=== PATIENT | male | born 1985 | race Caucasian/White ===

== ENCOUNTER 2023-04-10 01:43 | Emergency (ER) | payer BC ==
[2023-04-10] MEDS ORDERED: LIDOCAINE 1% MPF 30 ML VIAL ONE ×2 (02:34→05:28)
[2023-04-10] MEDS ORDERED: SMZ./TMP. 800/160 MG TABLET ONE (02:34)
[2023-04-10] MEDS ORDERED: TDAP (DIPHTH,PERTUSS(ACELL),TET VAC) 0.5 ML VIAL IMVAC ONE (02:34)
--- NOTE | 2023-04-10 06:12 | ER ---
Nurse's Notes [facility] Name: Juni Mann Age: 37 yrs Sex: Male : 1985 Arrival Date: 04/10/2023 Time: 01:43 Bed 7 Private MD: Diagnosis: Laceration without foreign body, right lower leg;Laceration without foreign body, left lower leg;Complex laceration right lower extremity right diaz, initial encounter, abrasion left knee Presentation: 04/10 02:24 Chief complaint: Patient states: pt tripped over a fire pit and has lacerations to as6 anterior shins. Coronavirus screen: At this time, the client does not indicate any symptoms associated with coronavirus-19. Ebola Screen: No symptoms or risks identified at this time. Initial Sepsis Screen: Does the patient meet any 2 criteria? No. Patient's initial sepsis screen is negative. Does the patient have a suspected source of infection? No. Patient's initial sepsis screen is negative. Risk Assessment: Do you want to hurt yourself or someone else? Patient reports no desire to harm self or others. Onset of symptoms was April 10, 2023. 02:24 Method Of Arrival: Ambulatory as6 02:24 Acuity: EDGARDO 4 as6 Historical: - Allergies: 02:26 No Known Allergies; as6 - Home Meds: 02:26 None [Active]; as6 - PMHx: 02:26 GERD; as6 - PSHx: 02:26 None; as6 - Immunization history:: Last tetanus immunization: > 10 years ago. - Social history:: Smoking status: Patient denies any tobacco usage or history of. - Family history:: not pertinent. Screenin:22 [facility] ED Fall Risk Assessment (Adult) History of falling in the last 3 months, ha1 including since admission No falls in past 3 months (0 pts) Confusion or Disorientation No (0 pts) Intoxicated or Sedated No (0 pts) Impaired Gait No (0 pts) Mobility Assist Device Used No (0 pt) Altered Elimination No (0 pt) Score/Fall Risk Level 0 - 2 = Low Risk Oriented to surroundings, Maintained a safe environment, Educated pt \T\ family on fall prevention, incl call for assistance when getting out of bed, Hourly rounding (assess needs \T\ fall precautionary measures) done. 04:00 Abuse screen: Denies threats or abuse. Denies injuries from another. Nutritional ha1 screening: No deficits noted. Tuberculosis screening: No symptoms or risk factors identified. Assessment: 02:22 General: Appears comfortable, Behavior is calm, cooperative. Pain: Complains of pain in ha1 right leg and left leg Pain does not radiate. Pain currently is 4 out of 10 on a pain scale. Neuro: Level of Consciousness is awake, alert, obeys commands, Oriented to person, place, time, situation. Cardiovascular: Patient's skin is warm and dry. Respiratory: Airway is patent Respiratory effort is even, unlabored, Respiratory pattern is regular, symmetrical. GI: No signs and/or symptoms were reported involving the gastrointestinal system. Derm: Skin is pink, warm \T\ dry. Musculoskeletal: Circulation, motion, and sensation intact. Range of motion: intact in all extremities. Injury Description: Laceration sustained to right diaz and left diaz. 03:20 Reassessment: Patient and/or family updated on plan of care and expected duration. Pain ha1 level reassessed. Patient is alert, oriented x 3, equal unlabored respirations, skin warm/dry/pink. awaiting on procedure. 04:20 Reassessment: Patient and/or family updated on plan of care and expected duration. Pain ha1 level reassessed. Patient is alert, oriented x 3, equal unlabored respirations, skin warm/dry/pink. 05:20 Reassessment: Patient and/or family updated on plan of care and expected duration. Pain ha1 level reassessed. Patient is alert, oriented x 3, equal unlabored respirations, skin warm/dry/pink. 06:20 Reassessment: Patient and/or family updated on plan of care and expected duration. Pain ha1 level reassessed. Patient is alert, oriented x 3, equal unlabored respirations, skin warm/dry/pink. Patient denies pain at this time. Vital Signs: 02:24 BP 136 / 97; Pulse 84; Resp 18 S; Temp 98.2(TE); Pulse Ox 100% on R/A; Weight 99.79 kg as6 (R); Height 6 ft. 1 in. (R); Pain 3/10; 03:20 BP 115 / 68; Pulse 84; Resp 16 S; Pulse Ox 98% on R/A; ha1 04:10 BP 111 / 76; Pulse 80; Resp 16 S; Pulse Ox 99% on R/A; ha1 05:10 BP 119 / 79; Pulse 71; Resp 18 S; Pulse Ox 97% on R/A; ha1 06:00 BP 117 / 80; Pulse 70; Resp 16; Pulse Ox 98% on R/A; ha1 02:24 Body Mass Index 29.03 (99.79 kg, 185.42 cm) as6 02:24 Pain Scale: Adult as6 ED Course: 01:47 Patient arrived in ED. ja2 02:06 Yevgeniy Salomon MD is Attending Physician. sp4 02:19 Arm band placed on. as6 02:22 Patient has correct armband on for positive identification. Placed in gown. Bed in low ha1 position. Call light in reach. Side rails up X 1. Adult w/ patient. 02:26 Triage completed. as6 06:25 Rasheeda Matthew, NIKKY is Primary Nurse. ha1 06:26 Assist provider with laceration repair on left leg and right leg that was between 2.6 ha1 to 7.5 cm using sutures. Set up tray. Performed by Yevgeniy Salomon MD Dressed with 4X4s, Kerlix. Patient did not have IV access during this emergency room visit. Administered Medications: 02:31 Drug: Trimethoprim-Sulfamethoxazole PO (160 mg-800 mg (DS) 1 tablet Route: PO; 02:31 Drug: Tetanus-Diphtheria Toxoid IM Adult 0.5 ml {[employer] Sales Professional: [employer] ([employer]). kl Exp: 09/13/2023. Lot #: [id number]. } Route: IM; Site: right deltoid; 06:29 Follow up: Response: No adverse reaction ha1 05:00 Drug: Lidocaine Infiltration (1 %) 30 ml {Note: administered by Dr. Yevgeniy Santana} Volume: ha1 20 ml; Route: Infiltration; 05:58 Drug: Lidocaine Infiltration (1 %) 30 ml {Note: administered by ER provider..} Volume: jb4 20 ml; Route: Infiltration; 06:29 Follow up: Response: No adverse reaction ha1 Medication: 06:28 VIS not applicable for this client. ha1 Outcome: 06:11 Discharge ordered by . sp4 06:27 Discharged to home ambulatory, with family. ha1 06:27 Condition: stable 06:27 Discharge instructions given to patient, family, Instructed on discharge instructions, follow up and referral plans. Demonstrated understanding of instructions, follow-up care. 06:30 Patient left the ED. ha1 Signatures: Marie Lopez RN Cliff Spann RN RN jb4 Isabel Abdul Ashby, RN RN as6 Rasheeda Matthew RN RN ha1 Yevgeniy Salomon MD MD sp4
--- NOTE | 2023-04-10 06:12 | EDPHYS ---
Physician Documentation [facility] Name: Juni Mann Age: 37 yrs Sex: Male : 1985 Arrival Date: 04/10/2023 Time: 01:43 Bed 7 Private MD: ED Physician Yevgeniy Salomon HPI: 04/10 02:06 This 37 yrs old Male presents to ER via Unassigned with complaints of Leg sp4 Injury. 02:22 37-year-old male presents with acute bilateral lower extremity laceration 1 above right sp4 ankle and the second above the left ankle.. Patient sustained his laceration was by falling down into a burn pit and sustaining cuts on a kimmie metal. 02:22 Patient states he is not up-to-date on his tetanus shot. sp4 06:15 Patient has bilateral lower extremity laceration right and left diaz. And abrasion to sp4 left knee. . Historical: - Allergies: 02:26 No Known Allergies; as6 - Home Meds: 02:26 None [Active]; as6 - PMHx: 02:26 GERD; as6 - PSHx: 02:26 None; as6 - Immunization history:: Last tetanus immunization: > 10 years ago. - Social history:: Smoking status: Patient denies any tobacco usage or history of. - Family history:: not pertinent. ROS: 06:15 Constitutional: Negative for fever, chills, and weight loss, MS/Extremity: Positive sp4 right lower extremity a laceration to the right diaz, left lower extremity laceration to the diaz, positive skin abrasion to the left knee Skin: Negative for , rash, and discoloration, positive for abrasions and laceration. 06:15 All other systems are negative. Exam: 06:15 Constitutional: This is a well developed, well nourished patient who is awake, alert, sp4 and in no acute distress. Head/Face: Normocephalic, atraumatic. Eyes: Pupils equal round and reactive to light, extra-ocular motions intact. Lids and lashes normal. Conjunctiva and sclera are not injected. Cornea within normal limits. Periorbital areas with no swelling, redness, or edema. ENT: Nares patent. No nasal discharge, no septal abnormalities noted. Tympanic membranes are normal and external auditory canals are clear. Oropharynx with no redness, swelling, or masses, exudates, or evidence of obstruction, uvula midline. Mucous membranes moist. Neck: Trachea midline, no thyromegaly or masses palpated, and no cervical lymphadenopathy. Supple, full range of motion without nuchal rigidity, or vertebral point tenderness. Chest/axilla: Normal chest wall appearance and motion. Nontender with no deformity. No lesions are appreciated. Cardiovascular: Regular rate and rhythm with a normal S1 and S2. No gallops, murmurs, or rubs. Normal PMI, no JVD. No pulse deficits. Respiratory: Lungs have equal breath sounds bilaterally, clear to auscultation and percussion. No rales, rhonchi or wheezes noted. No increased work of breathing, no retractions or nasal flaring. Abdomen/GI: Soft, non-tender, with normal bowel sounds. No distension or tympany. No guarding or rebound. No evidence of tenderness throughout. Back: No spinal tenderness. No costovertebral tenderness. Skin: Warm, dry with normal turgor. Normal color with no rashes, no lesions, and no evidence of cellulitis. Bilateral lower extremity laceration see exam below MS/ Extremity: Pulses equal, no cyanosis. Neurovascular intact. Full, normal range of motion. Right lower extremity lower extreme laceration with a skin flap, vertical orientation, with denuded skin, and jagged edges. Left lower extremity laceration to lower extreme that is in horizontal orientation linear laceration uncomplicated. No active bleeding. There is left knee abrasion. Neuro: Awake and alert, GCS 15, oriented to person, place, time, and situation. Cranial nerves II-XII grossly intact. Motor strength 5/5 in all extremities. Sensory grossly intact. Psych: Awake, alert, with orientation to person, place and time. Behavior, mood, and affect are within normal limits Vital Signs: 02:24 BP 136 / 97; Pulse 84; Resp 18 S; Temp 98.2(TE); Pulse Ox 100% on R/A; Weight 99.79 kg as6 (R); Height 6 ft. 1 in. (R); Pain 3/10; 03:20 BP 115 / 68; Pulse 84; Resp 16 S; Pulse Ox 98% on R/A; ha1 04:10 BP 111 / 76; Pulse 80; Resp 16 S; Pulse Ox 99% on R/A; ha1 05:10 BP 119 / 79; Pulse 71; Resp 18 S; Pulse Ox 97% on R/A; ha1 06:00 BP 117 / 80; Pulse 70; Resp 16; Pulse Ox 98% on R/A; ha1 02:24 Body Mass Index 29.03 (99.79 kg, 185.42 cm) as6 02:24 Pain Scale: Adult as6 Laceration: 06:15 Wound Repair of 5cm ( 2.0in ) subcutaneous laceration to right diaz. Irregularly sp4 shaped.. Skin/tissue flap noted.. Hemostasis noted.. Moderate contamination.. Distal neuro/vascular/tendon intact. Anesthesia: Wound infiltrated with 20 mls of 1% lidocaine. Wound prep: Extensive cleansing by me, Copious irrigation. Skin closed with 10 3-0 Silk using vertical mattress sutures and sterile technique. Dressed with 4x4's, Kerlix, non-adherent dressing. Patient tolerated well. 06:15 Wound Repair of 3cm ( 1.2in ) subcutaneous laceration to left diaz. Linear shaped.. sp4 Moderate contamination.. Distal neuro/vascular/tendon intact. Anesthesia: Wound infiltrated with 20 mls of 1% lidocaine. Wound prep: Extensive cleansing by me, Copious irrigation. Skin closed with 8 4-0 Silk using vertical mattress sutures and sterile technique. Dressed with 4x4's, Kerlix, non-adherent dressing. MDM: 02:14 Patient medically screened. sp4 06:15 Differential diagnosis: closed fracture, contusion, abrasion. Data reviewed: vital sp4 signs, nurses notes. ED course: Lacerations were repaired carefully with extensive irrigation. Patient advised to take Bactrim twice a day for 10 days for infection prevention. Patient advised gentle cleansing and quick showers without soaking or swimming for the next 2 weeks . 04/10 02:22 Order name: Dressing - Wound sp4 04/10 02:22 Order name: Gloves, Sterile; Complete Time: 03:48 sp4 04/10 02:22 Order name: Setup Suture Tray; Complete Time: 03:48 sp4 04/10 02:22 Order name: Wound Care; Complete Time: 02:31 sp4 Administered Medications: 02:31 Drug: Trimethoprim-Sulfamethoxazole PO (160 mg-800 mg (DS) 1 tablet Route: PO; 02:31 Drug: Tetanus-Diphtheria Toxoid IM Adult 0.5 ml {[employer] Operator: [employer] ([employer]). Exp: 09/13/2023. Lot #: [id number]. } Route: IM; Site: right deltoid; 06:29 Follow up: Response: No adverse reaction ha1 05:00 Drug: Lidocaine Infiltration (1 %) 30 ml {Note: administered by Dr. Yevgeniy Santana} Volume: ha1 20 ml; Route: Infiltration; 05:58 Drug: Lidocaine Infiltration (1 %) 30 ml {Note: administered by ER provider..} Volume: jb4 20 ml; Route: Infiltration; 06:29 Follow up: Response: No adverse reaction ha1 Disposition Summary: 04/10/23 06:11 Discharge Ordered Location: Home sp4 Problem: new sp4 Symptoms: have improved sp4 Condition: Stable sp4 Diagnosis - Laceration without foreign body, right lower leg sp4 - Laceration without foreign body, left lower leg sp4 - Complex laceration right lower extremity right diaz, initial encounter, abrasion sp4 left knee Followup: sp4 - With: Private Physician - When: 10 - 14 days - Reason: Recheck today's complaints Discharge Instructions: - Discharge Summary Sheet sp4 - Laceration Care, Adult, [id number] sp4 Prescriptions: - Bactrim DS 800-160 mg Oral Tablet - take 1 tablet by ORAL route every 12 hours for 10 days; 20 tablet; Refills: 0, sp4 Product Selection Permitted Signatures: Marie Lopez RN RN kl Bryson, James, RN RN jb4 Obed Taylor RN RN as6 Rasheeda Matthew RN RN ha1 Yevgeniy Salomon MD MD sp4
[2023-04-10 06:37] VITALS: TEMP 98.2
[2023-04-10 06:42] VITALS: BP 117/80; O2SAT 98
== END 2023-04-10 06:30 | disposition home or self-care (01) ==
LOC: ER 01:43
PROC: 0HQLXZZ Repair Left Lower Leg Skin, External Approach (ICD-10-PCS; principal; 2023-04-10)
PROC: 0HQKXZZ Repair Right Lower Leg Skin, External Approach (ICD-10-PCS; 2023-04-10)
DX: S81.812A Laceration without foreign body, left lower leg, initial encounter (principal); S81.811A Laceration without foreign body, right lower leg, initial encounter; S80.212A Abrasion, left knee, initial encounter; Z23 Encounter for immunization
CPT/HCPCS: 90471; 99284; 12004; J2001 ×2